=== PATIENT | female | born 2000 | race African-American/Black ===

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

== ENCOUNTER 2020-11-01 14:27 | Emergency (ER) | payer SELFPAY ==
[~2020-11-01] VITALS: Ht 167.6 cm; Wt 54.0 kg
[~2020-11-01 14:27] MED LIST changes: +MONT10TA49 PO; -MONT10TA6 PO
[2020-11-01 14:38] VITALS: BP 131/65
[2020-11-01] MEDS ORDERED: NAPR-514 PO (14:52)
--- NOTE | 2020-11-01 14:53 | ED.ADGEN ---
Past Medical History Past Medical History: Asthma Additional Past Medical Histor: PTSD, ALLERGIES Past Surgical History: Tonsillectomy Additional Past Surgical Histo: tubes, dental Smoking Status: Never Smoker Alcohol Use: None Drug Use: None General Adult EDM: Chief Complaint: DENTAL PROBLEM HPI: HPI: Patient is a 20 year old AA female who presents to the emergency department with complaints of intermittent dental pain in the right lower quadrant for over a year. She reports history of a wisdom tooth that is partially erupted. She denies any fever, cough, sore throat, ear pain, headache, rash, or difficulty swallowing. She currently rates her pain a 10 out of 10 on the pain scale describes it as a throbbing sensation, patient reports trying Tylenol for relief of pain with no benefit. Review of Systems: Review of Systems: Complete ROS is negative unless otherwise noted in HPI. Allergies: Allergies: Allergies Coded Allergies Type Severity Reaction Last Updated Verified No Known Drug Allergies 12/07/14 No Physical Exam: PE: See Above Constitutional: Well developed, well nourished, no acute distress, non-toxic appearance. [] HENT: Normocephalic, atraumatic, bilateral external ears normal, nose normal; partially erupted tooth #32, no visible decay, or fracture, no gingival erythema, mild gingival edema, no visible or palpable dental abscess. [] Eyes: PERRLA, EOMI, conjunctiva normal, no discharge. [] Neck: Normal range of motion, supple, nontender, no stridor. [] Cardiovascular:Heart rate regular rhythm Lungs & Thorax: Respirations even and unlabored, no retractions, no respiratory distress Skin: Warm, dry, no erythema, no rash. [] Extremities: No cyanosis, ROM intact, no edema. [] Neurologic: Alert and oriented X 3, no focal deficits noted. [] Psychologic: Affect normal, judgement normal, mood normal. [] Current Patient Data: Vital Signs: Vital Signs Date Time Temp Pulse Resp B/P (MAP) Pulse Ox O2 Delivery O2 Flow Rate FiO2 11/01/20 14:38 98.7 93 18 131/65 (87) 100 98.7 EKG: EKG: [] Heart Score: C/O Chest Pain: No Risk Factors: Risk Factors: DM, Current or recent (<one month) smoker, HTN, HLP, family history of CAD, obesity. Risk Scores: Score 0 - 3: 2.5% MACE over next 6 weeks - Discharge Home Score 4 - 6: 20.3% MACE over next 6 weeks - Admit for Clinical Observation Score 7 - 10: 72.7% MACE over next 6 weeks - Early Invasive Strategies Radiology/Procedures: Radiology/Procedures: [] Course & Med Decision Making: Course & Med Decision Making Pertinent Labs and Imaging studies reviewed. (See chart for details) [] Dragon Disclaimer: Dragon Disclaimer: This electronic medical record was generated, in whole or in part, using a voice recognition dictation system. Departure Departure Impression: Primary Impression: Dentalgia Disposition: 01 DC HOME SELF CARE/HOMELESS Condition: STABLE Referrals: LATHA CASON DO (PCP) Patient Instructions: Dental Pain, [id number] Additional Instructions: Fill prescription(s) and use as directed. Do not take ibuprofen while taking the prescribed naproxen. Follow up with dentist using the referral list provided. Return to the ER if symptoms worsen or fever develops. Scripts Naproxen (NAPROXEN) 500 Mg Tablet 1 TAB PO BID PRN for PAIN for 10 Days, #20 TAB 0 Refills Take with food Prov: JERMAINE HUBBARD CHIROPRACTIC TEACHER 11/01/20 JERMAINE HUBBARD CHIROPRACTIC TEACHER Nov 01, 2020 14:53
== END 2020-11-01 15:04 | disposition home or self-care (01) ==
LOC: ER 14:27
DX: K08.89 Other specified disorders of teeth and supporting structures (principal); J45.909 Unspecified asthma, uncomplicated
CPT/HCPCS: 99282

== ENCOUNTER → 2021-06-12 | Emergency (ER) | payer SELFPAY ==
[~2021-06-12] VITALS: Ht 165.1 cm; Wt 55.0 kg
[~2021-06-12] MED LIST changes: +NAPR-514 PO
[2021-06-12 15:52] VITALS: BP 138/67
[2021-06-12 15:59] LABS: BILIRUBIN,URINE NEGATIVE (NEG); CLARITY,URINE CLEAR; COLOR,URINE YELLOW; NITRITE,URINE NEGATIVE (NEG); PH,URINE 6.5 (<5.0-8.0); PROTEIN,URINE NEGATIVE (NEG-TRACE)
[2021-06-12 16:08] LABS: BACTERIA,URINE MODERATE /HPF (0-FEW); RBC,URINE 0 /HPF (0-2)
--- NOTE | 2021-06-12 16:08 | PHYS DOC ---
Past Medical History Past Medical History: Asthma Additional Past Medical Histor: PTSD, ALLERGIES Past Surgical History: Tonsillectomy Additional Past Surgical Histo: tubes, dental Smoking Status: Never Smoker Alcohol Use: None Drug Use: None General Adult EDM: Chief Complaint: TEST HPI: HPI: Patient is a 21 year old female who presents with is wanting a test because she went to donate plasma and they said that her iron was low and asked her if she was . Patient states she has been having her menstrual periods. She states that she has been taking tests at home and they are all negative. She denies abdominal pain, nausea, vomiting, diarrhea, fever, cough, chest pain, shortness of air, urinary symptoms, back pain. Review of Systems: Review of Systems: Constitutional: Denies fever or chills. [] Eyes: Denies change in visual acuity. [] HENT: Denies nasal congestion or sore throat. [] Respiratory: Denies cough or shortness of breath. [] Cardiovascular: Denies chest pain or edema. [] GI: Denies abdominal pain, nausea, vomiting, bloody stools or diarrhea. [] : Denies dysuria. + test [] Musculoskeletal: Denies back pain or joint pain. [] Integument: Denies rash. [] Neurologic: Denies headache, focal weakness or sensory changes. [] Endocrine: Denies polyuria or polydipsia. [] Lymphatic: Denies swollen glands. [] Psychiatric: Denies depression or anxiety. [] Heart Score: C/O Chest Pain: No Allergies: Allergies: Allergies Coded Allergies Type Severity Reaction Last Updated Verified No Known Drug Allergies 12/07/14 No Physical Exam: PE: Constitutional: Well developed, well nourished, no acute distress, non-toxic appearance. [] HENT: Normocephalic, atraumatic, bilateral external ears normal, oropharynx moist, no oral exudates, nose normal. [] Eyes: PERRLA, EOMI, conjunctiva normal, no discharge. [] Neck: Normal range of motion, no tenderness, supple, no stridor. [] Cardiovascular:Heart rate regular rhythm, no murmur [] Lungs & Thorax: Bilateral breath sounds clear to auscultation [] Abdomen: Bowel sounds normal, soft, no tenderness, no masses, no pulsatile masses. [] Skin: Warm, dry, no erythema, no rash. [] Back: No tenderness, no CVA tenderness. [] Extremities: No tenderness, no cyanosis, no clubbing, ROM intact, no edema. [] Neurologic: Alert and oriented X 3, normal motor function, normal sensory function, no focal deficits noted. [] Psychologic: Affect normal, judgement normal, mood normal. [] Normal physical exam Current Patient Data: Labs: Laboratory Tests Test 06/12/21 15:49 POC Urine HCG, Qualitative Hcg negative (Negative) Vital Signs: Vital Signs Date Time Temp Pulse Resp B/P (MAP) Pulse Ox O2 Delivery O2 Flow Rate FiO2 06/12/21 15:52 99.0 83 18 138/67 (90) 100 Room Air 99.0 EKG: EKG: [] Radiology/Procedures: Radiology/Procedures: [] Course & Med Decision Making: Course & Med Decision Making Pertinent Labs and Imaging studies reviewed. (See chart for details) See HPI. Alert and oriented x4. Ambulatory steady gait. Skin pink warm and dry. Mucous membranes moist. Vital signs are within normal limits. Afebrile. Abdomen is soft and nontender. No CVA tenderness. She denies any concern for STD or abnormal vaginal discharge. test here in the ED is negative. [] Hansa Disclaimer: Hansa Disclaimer: This electronic medical record was generated, in whole or in part, using a voice recognition dictation system. Departure Departure Impression: Primary Impression: test negative Disposition: HOME / SELF CARE / HOMELESS Condition: STABLE Referrals: NO PCP (PCP) Patient Instructions: Tests Additional Instructions: Follow-up with primary care provider soon as possible. Drink plenty of fluids. KEN HATFIELD STOCK PREPARATION SUPERVISOR Jun 12, 2021 16:08
== END | disposition home or self-care (01) ==
LOC: ER 14:59
DX: Z32.02 Encounter for pregnancy test, result negative (principal); J45.909 Unspecified asthma, uncomplicated
CPT/HCPCS: 81001; 81025; 87086; 99283